=== PATIENT | male | born 1965 | race Caucasian/White ===

== ENCOUNTER 2016-05-26 04:38 | Emergency (ER) | payer MEDICAID ==
[~2016-05-26] VITALS: Ht 175.3 cm; Wt 136.1 kg
[2016-05-26 09:42] VITALS: BP 151/90
== END 2016-05-26 09:54 | disposition home or self-care (01) ==
LOC: ER 04:40
DX: J20.9 Acute bronchitis, unspecified (principal); J45.901 Unspecified asthma with (acute) exacerbation

== ENCOUNTER 2017-06-06 04:24 | Emergency (ER) | payer MEDICAID ==
[~2017-06-06] VITALS: Ht 175.3 cm; Wt 136.1 kg
[2017-06-06 05:24] VITALS: BP 148/95
== END 2017-06-06 05:34 | disposition home or self-care (01) ==
LOC: ER 04:24
DX: J20.9 Acute bronchitis, unspecified (principal); J45.909 Unspecified asthma, uncomplicated
CPT/HCPCS: 71046

== ENCOUNTER 2017-07-17 20:26 | Emergency (ER) | payer MEDICAID ==
[~2017-07-17] VITALS: Ht 175.3 cm; Wt 147.4 kg
[2017-07-17 23:53] VITALS: BP 151/100
== END 2017-07-18 00:24 | disposition home or self-care (01) ==
LOC: ER 20:26
DX: L03.011 Cellulitis of right finger (principal)
CPT/HCPCS: 10060